=== PATIENT | female | born 1980 | race African-American/Black ===

== ENCOUNTER 2017-01-26 18:59 | Emergency (ER) | payer MEDICAID ==
[~2017-01-26] VITALS: Ht 167.6 cm; Wt 57.0 kg
[2017-01-26 19:29] VITALS: BP 151/94
== END 2017-01-26 22:00 | disposition left against medical advice (07) ==
LOC: ER 18:59
DX: N93.9 Abnormal uterine and vaginal bleeding, unspecified (principal); Z53.21 Procedure and treatment not carried out due to patient leaving prior to being seen by health care provider